=== PATIENT | female | born 1995 | race Caucasian/White ===

== ENCOUNTER 2018-04-18 05:48 | Inpatient (IN) ==
--- OUTSIDE RECORDS SUMMARY | 2018-04-18 05:54 | External Medical Summary | Continuity of Care Document ---
:1995 Author Organization [facility] Address [address] [place], [place] [id number] Phone Care Team Providers Name Role Phone Karina Vergara MD Unavailable Unavailable Allergies, Adverse Reactions, Alerts Substance Reaction Severity Status PENICILLIN Rash Unknown Active cefaclor Rash Unknown Active Cephalosporins Vomiting Unknown Active amoxicillin Rash Unknown Active CLINDAMYCIN HCL Vomiting Unknown Active Medications Medication Instructions Dosage Effective Status Comments Dates (start - stop) PrePlus 27 mg take 1 tablet by Not Available - Active or generic iron-1 mg tablet oral route every sub is fine day clindamycin HCl 300 take 1 capsule by 300 MG - Active mg capsule ORAL route 2 times every day for 7 days triamcinolone take 1 tablet by - Active acetonide 0.1 % ORAL route every topical cream 3 days as needed Problems Condition Effective Dates (start - stop) Clinical Status Previous Low Transverse - 20 weeks gestation of - Nicotine dependence, cigarettes, uncomplicated Abscess of vulva Supervision of other high risk - pregnancies, first trimester 13 weeks gestation of - Nicotine dependence, cigarettes, - uncomplicated Supervision of other high risk - pregnancies, first trimester Drug use complicating , first - trimester Pap Smear Screening, Vagina - 10 weeks gestation of - Abscess of vulva Supervision of other high risk - pregnancies, first trimester Previous Low Transverse - 13 weeks gestation of - Supervision of other high risk - pregnancies, second trimester 17 weeks gestation of - Supervision of other high risk - pregnancies, second trimester Previous Low Transverse - Encounter For Screening For - Malformations 20 weeks gestation of - Procedures Procedure Date OB Visit No Charge Results Test Name Date and Time Measure Units Reference Range Abnormal Flag Comments Unknown Advance Directives Directive Yes / No Effective Date File Name Unknown Encounters Encounter Practice Location Reason(s) Diagnoses Date Provider Care Team Description For Visit Members Karma Salazar Previous Low Mar-2 Cristi In Womens Transverse 9- [place]. 700 Count includes the [facility], [id number] weeks 8 Medical PO Box gestation of Center 1522, Yariel Mcnally, 120, [place], [place], [id number], [place], [place] [id number] tel:+ , [place]. tel: [phone] Karma Salazar Supervision of Mar-2 Cristi In Womens Ultrasound other high risk - [place]. 700 Count includes the [facility], pregnancies, 8 Medical PO Box second Center 1522, trimesterPrevious Yariel Mcnally, Low Transverse 120, [place], C-SectionEncounte [place], , r For [place], [place] Screening For [id number] tel:+ [id number] , [place]. weeks gestation tel: of [phone] Karma Salazar Supervision of Mar-0 Cristi In Womens other high risk - [place]. 700 Count includes the [facility], pregnancies, 8 Medical PO Box second Center 1522, [id number] weeks Yariel Mcnally, gestation of 120, [place], [place], [id number], [place], [place] [id number] tel:+ , [place]. tel:[phone] Karma Salazar Supervision of Feb-0 Cristi In Womens other high risk 8-201 [place]. 700 Health [place], pregnancies, 8 Medical PO Box first [email or web address] Center 1522, weeks gestation Yariel Mcnally, of 120, [place], [place], [id number], [place], [place] [id number] tel:+ , [place]. tel: [phone] Karma Salazar Supervision of Feb-0 Cristi In Womens Ultrasound other high risk - [place]. 700 Health [place], pregnancies, 8 Medical PO Box first Center 1522, trimesterPrevious Yariel Mcnally, Low Transverse 120, [place], C-[id number] weeks [place], , gestation of [place], [place] tel: , [place]. tel: [phone] Karma Salazar Nicotine Feb-0 Cristi Referring In Womens dependence, 1 [place]. [facility] Provider: Health [place], cigarettes, 8 Medical [place] PO Box uncomplicatedSupe Center Cristi R, 1522, rvision of other Yariel Mcnally, high risk 120, Medical [place], pregnancies, [place], [place] , first [place], [facility] 120, [place] trimesterDrug use [id number] [place], tel: complicating , [place]. [place] , first tel:[phone]. trimesterPap [id number] tel: Smear Screening, [phone] [id number] weeks gestation of Associates [place] Abscess of vulva Oct-0 Cristi In Womens 8- [place]. 700 Health [place], 5 Medical PO Box Center 1522, Yariel Mcnally, 120, [place], [place], , [place], [place] [id number] tel: , [place]. tel: [phone] Karma Salazar Nicotine Oct-0 Cristi In Womens dependence, 2- [place]. 700 Health [place], cigarettes, 5 Medical PO Box uncomplicatedAbsc Center 1522, ess of vulva Yariel Mcnally, 120, [place], [place], , [place], [place] [id number] tel: , [place]. tel: [phone] Family History Family Member Diagnosis Age At Onset Maternal Grandfather Kidney Disease Mother Hypertension Paternal Grandmother Hypertension Maternal Grandmother Hypertension Father Cardiovascular Disease Father MVA Immunizations Vaccine Date Status Comments Influenza, injectable, completed Source: New Immunization Record quadrivalent, preservative free, 3 yrs or older Influenza, injectable, completed Source: Other Provider quadrivalent, preservative free, 3 yrs or older Payers Payer name Insurance type Covered green party ID Authorization(s) [employer] [place] [employer] [place] [id number] [facility] - [id number] Medicaid [employer] [place] [employer] - Medicaid [place] [id number] Social History Type Description Quantity Date Captured Alcohol Use Details No Caffeine Use Details Unknown Tobacco Use Status Smoking Status Current every day smoker Vital Signs Date / Height Weight BMI Pulse Blood Temperature Respiratory Body Head BMI Time: Rate Pressure Rate Surface Circumference percentile Area 198.50 36.3 126/74 2018 lbs 0 mm[Hg] 11:45 kg/m AM eter (2) Chief Complaint And Reason For Visit Unknown Chief Complaint And Reason For Visit Reason For Referral Reason For Referral Unknown Plan Of Care Date Type Action Status Goal Tobacco cessation counseling completed Appointment Patsy Ivy BOOKED Appointment Patsy Ivy [facility] R C/S BOOKED Future Order: Radiology Order Nuchal Translucency ([id number]) Ordered Future Order: Radiology Order Complete OB Ultrasound > 14 Weeks Ordered ([id number]) Date Type Problem Goal Intervention Status Start Date Unknown. History Of Present Illness Encounter Date Complaint History Of Present Illness This patient has no known history of present illness Functional Status Encounter Date Functional Assessment Cognitive Assessment Unknown Medications Administered Medication Instructions Dosage Effective Dates (start - stop) Status Comments Drug Treatment Unknown Instructions Date Instruction Additional Information HIV and other routine tests risk factors identified by history anticipated course of care nutrition and weight gain counseling, special diet toxoplasmosis precautions (cats / raw meat) sexual activity exercise indications for ultrasound influenza vaccine environmental / work hazards travel tobacco (ask, advise, assess, assist and arrange) alcohol illicit / recreational drugs use of any medications (including supplements, vitamins, herbs, OTC drugs) smoking counseling domestic violence seat belt use childbirth classes / hospital facilities hospital registration genetic testing new ob handbook
--- OUTSIDE RECORDS SUMMARY | 2018-04-18 05:54 | External Medical Summary | Continuity of Care Document ---
:1995 Author Organization [facility] Address [address] [place], [place] [phone] Phone Care Team Providers Name Role Phone [...] oral route every sub is fine day triamcinolone take 1 tablet by - Active acetonide 0.1 % ORAL route every topical cream 3 days as needed clindamycin HCl 300 take 1 capsule by 300 MG - Active mg capsule ORAL route 2 times every day for 7 days Problems Condition Effective Dates (start - stop) Clinical Status Supervision of other high risk - pregnancies, second trimester Previous Low Transverse - Encounter For Screening For - Malformations 20 weeks gestation of - Nicotine dependence, cigarettes, uncomplicated Abscess of vulva Supervision of other high risk - pregnancies, first trimester 13 weeks gestation of - Previous Low Transverse - 20 weeks gestation [...] second trimester 17 weeks gestation of - Procedures Procedure Date Ultrasound exam of preg uterus, complete Results Test Name Date and Time Measure Units Reference Range Abnormal Flag Comments Unknown Advance Directives Directive Yes / No Effective Date File Name Unknown Encounters Encounter Practice Location Reason(s) Diagnoses Date Provider Care Team Description For Visit Members Karma Salazar Previous Low Mar-2 Cristi In Womens Transverse 9- [place]. [address] [place] [address], [id number] weeks 8 Medical PO Box gestation of Center 1522, Yariel Mcnally, 120, [place], [place], [id number], [place], [place] [id number] tel:+ , [place]. tel:[phone] Karma Salazar Supervision of Mar-2 Cristi In Womens Ultrasound other high risk - [place]. [address] [place] [address], pregnancies, 8 Medical PO Box second Center 1522, trimesterPrevious Yariel Mcnally, Low Transverse 120, [place], C-SectionEncounte [place], , r For [place], [place] Screening For [id number] tel: [id number] , [place]. weeks gestation tel: of [phone] Karma Salazar Supervision of Mar-0 Cristi In Womens other high risk - [place]. [address] [place] [address], pregnancies, 8 Medical PO Box second Center 1522, [id number] weeks Yariel Mcnally, gestation of 120, [place], [place], [id number], [place], [place] [id number] tel: , [place]. tel: [phone] Karma Salazar Supervision of Feb-0 Cristi In Womens other high risk 8-[address], pregnancies, 8 Medical PO Box first [id number] Center 1522, weeks gestation Yariel Mcnally, of 120, [place], [place], [id number], [place], [place] [id number] tel: , [place]. tel: [phone] Karma Salazar Supervision of Feb-0 Cristi In Womens Ultrasound other high risk - [place]. 700 Health [place], pregnancies, 8 Medical PO Box first Center 1522, trimesterPrevious Yariel Mcnally, Low Transverse 120, [place], [id number] weeks [place], , gestation of [place], [place] tel: , [place]. tel: [phone] Karma Salazar Nicotine Feb-0 Cristi Referring In Womens dependence, [place] [address] Provider: Health [place], cigarettes, 8 Medical [place] PO Box uncomplicatedSupe Center Cristi R, 1522, rvision of other Yariel Mcnally, high risk 120, Medical [place], pregnancies, [place], [place] , first MARYJANE [facility] 120, [place] trimesterDrug use [place], tel: complicating , [place]. [place] , first tel:[phone]. trimesterPap [id number] tel: Smear Screening, [id number] Ojpnyx47 weeks gestation of Associates [place] Abscess of vulva Oct-0 Cristi In Womens [place]. 700 Health [place], 5 Medical PO Box Center 1522, Yariel Mcnally, 120, [place], [place], , [place], [place] [id number] tel: , [place]. tel: [phone] Karma Salazar Nicotine Oct-0 Cristi In Womens dependence, 2 [place]. 700 Health [place], cigarettes, 5 Medical PO Box uncomplicatedAbsc Center 1522, ess of vulva Yariel Mcnally, 120, [place], [place], , [place], [place] [id number] tel: , [place]. tel: [phone] Family History Family Member Diagnosis Age At Onset Maternal Grandfather Kidney Disease Mother Hypertension Paternal Grandmother Hypertension Maternal Grandmother Hypertension Father Cardiovascular Disease Father MVA Immunizations Vaccine Date Status Comments Influenza, injectable, completed Source: New Immunization Record quadrivalent, preservative free, 3 yrs or older Influenza, injectable, completed Source: Other Provider quadrivalent, preservative free, 3 yrs or older Payers Payer name Insurance type Covered republican ID Authorization(s) [employer] - Medicaid [place] [id number] [facility] - [id number] Medicaid [employer] - [place] [id number] Social History Type Description Quantity Date Captured Unknown Vital Signs Date / Height Weight BMI Pulse Blood Temperature Respiratory Body Head BMI Time: Rate Pressure Rate Surface Circumference percentile Area Unknown Chief Complaint And Reason For Visit Unknown Chief Complaint And Reason For Visit Reason For Referral Reason For Referral Unknown Plan Of Care Date Type Action Status Goal Tobacco cessation counseling completed Appointment Patsy Ivy BOOKED Appointment Patsy Ivy [facility] R C/S BOOKED Future Order: Radiology Order Complete OB Ultrasound > 14 Weeks Ordered ([id number]) Future Order: Radiology Order Nuchal Translucency ([id number]) Ordered Date Type Problem Goal Intervention Status Start [...]
--- OUTSIDE RECORDS SUMMARY | 2018-04-18 05:54 | External Medical Summary | Continuity of Care Document ---
:1995 Author Organization [facility] Address [address] [place], [place] [id number] Phone Care Team Providers Name Role Phone Karina Vergara MD Unavailable Unavailable Allergies, Adverse Reactions, Alerts Substance Reaction Severity Status PENICILLIN Rash Unknown Active cefaclor Rash Unknown Active Cephalosporins Vomiting Unknown Active amoxicillin Rash Unknown Active CLINDAMYCIN HCL Vomiting Unknown Active Medications Medication Instructions Dosage Effective Dates Status Comments (start - stop) PrePlus 27 mg take 1 tablet by Not Available - Active or generic sub iron-1 mg tablet oral route every is fine day Problems Condition Effective Dates (start - stop) Clinical Status Supervision of other high risk - pregnancies, third trimester Previous Low Transverse - 35 weeks gestation of - Supervision of other high risk - pregnancies, first trimester 13 weeks gestation of - Nicotine dependence, cigarettes, - uncomplicated Supervision of other high risk - pregnancies, first trimester Drug use complicating , first - trimester Pap Smear Screening, Vagina - 10 weeks gestation of - Nicotine dependence, cigarettes, uncomplicated Abscess of vulva Abscess of vulva Supervision of other high risk - pregnancies, first trimester Previous Low Transverse - 13 weeks gestation of - Supervision of other high risk - pregnancies, second trimester 17 weeks gestation of - Supervision of other high risk - pregnancies, second trimester 23 weeks gestation of - Supervision of other high risk - pregnancies, second trimester Previous Low Transverse - Encounter For Screening For - Malformations 20 weeks gestation of - Supervision of other high risk - pregnancies, third trimester Previous Low Transverse - 30 weeks gestation of - Supervision of other high risk - pregnancies, third trimester 37 weeks gestation of - Supervision of other high risk - pregnancies, third trimester 34 weeks gestation of - Supervision of other high risk - pregnancies, third trimester 28 weeks gestation of - Supervision of other high risk - pregnancies, third trimester 32 weeks gestation of - Abnormal hematolog finding on - screening of mother Previous Low Transverse - 36 weeks gestation of - Previous Low Transverse - 38 weeks gestation of - Previous Low Transverse - Encounter For Screening For - Streptococcus B 36 weeks gestation of - Previous Low Transverse - 20 weeks gestation of - Procedures Procedure Date OB 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 700 Provider: [facility], C-[id number] weeks 8 Medical [place] PO Box gestation of [place], 1522, Yariel Mcnally 700 [place], 120, Medical [place], [facility] [id number], [place], [address], [id number] [place], tel:3 , [place]. [place], [id number]. [id number] tel: tel:+ [phone] Karma Salazar Supervision of Cristi Referring In Womens other high risk 6-201 [place]. 700 Provider: Health [place], pregnancies, 8 Medical [place] PO Box third [id number] Center [place], 1522, weeks gestation Yariel Mcnally, of 120, Medical [place] [address] [id number], [place], [address], [place] [id number] [place], tel:+ , [place]. [place], tel: tel:[phone] Karma Salazar Previous Low Jossue-1 Cristi Referring In Womens Transverse 9- [place]. 700 Provider: Health PA, C-SectionEncounte 8 Medical [place] PO Box r For Center Cristi R, 1522, Screening For Yariel Mcnally, Streptococcus B36 120, Medical [place], weeks gestation [address] [place] , of [place], Yariel 120, [place] [id number] [place], tel:+ , [place]. [place], tel: [phone]. [id number] tel:[phone] Karma Salazar Abnormal Jossue-1 Cristi Referring In Womens Ultrasound hematolog finding - [place]. 700 Provider: Health [place], on 8 Medical Tanner PO Box screening of [facility], 1522, motherPrevious Yariel Mcnally, Low Transverse 120, Medical [place], C-[id number] weeks [address] , gestation of [place], [address], [place] [id number] [place], tel:+ , [place]. [place], tel: tel:[phone] Salazar Supervision of Jossue-1 Cristi Referring In Womens other high risk 2-201 [place]. 700 Provider: Health [place], pregnancies, 8 Medical [place]anner PO Box third Center [place], 1522, trimesterPrevious Yariel Mcnally, Low Transverse 120, Medical [place], [id number] [id number], gestation of [place], [address], [place] [id number] [place], tel:+ , [place]. [place], tel: tel:[phone] Karma Salazar Supervision of Jossue-0 Cristi Referring In Womens other high risk 5-201 [place]. 700 Provider: Health [place], pregnancies, 8 Medical Tanner PO Box third [id number] Center [place], 1522, weeks gestation Yariel Mcnally, of 120, Medical [facility] [id number], [place], [address], [place] [id number] [place], tel:+ , [place], [address]. tel: tel:[phone] Karma Salazar Supervision of Josue-2 Cristi Referring In Womens other high risk 1-201 [place]. 700 Provider: Health PA, pregnancies, 8 Medical Tanner PO Box third [id number] Center [place], 1522, weeks gestation Yariel Mcnally, of 120, Medical [facility] [id number], [place], [address], [place] [id number] [place], tel:+ , [place]. [place], [address]. tel: tel:[phone] Karma Salazar Supervision of Josue-0 Cristi Referring In Womens other high risk 7-201 [place]. 700 Provider: Health PA, pregnancies, 8 Medical Tanner PO Box third Center [place], 1522, trimesterPrevious Yariel Mcnally, Low Transverse 120, Medical [place], C-Iqifnix27 weeks [place] [id number], gestation of [place], [address], [place] [id number] [place], tel:+ , [place], [address]. tel: tel:[phone] Karma Salazar Supervision of May-2 Cristi Referring In Womens other high risk 4-201 [place]. 700 Provider: Health PA, pregnancies, 8 Medical Tanner PO Box third [id number] Center [place], 1522, weeks gestation Yariel Mcnally, of 120, Medical [place] [facility] [id number], [place], [address], [place] [id number] [place], tel:+ , [place]. [place], tel: tel:[phone] Karma Salazar Supervision of Apr-2 Cristi Referring In Womens other high risk 5-201 [place]. 700 Provider: Health PA, pregnancies, 8 Medical Tanner PO Box second Center [place], 1522, weeks Yariel Mcnally, gestation of 120, Medical [place], [place], [place] [id number], [place], [address], [place] [id number] [place], tel: , [place], [address]. tel: tel:[phone] Karma Salazar Previous Low Mar-2 Cristi In Womens Transverse 9-201 [place]. 700 Health [place], C-[id number] weeks 8 Medical PO Box gestation of Center 1522, Yariel Mcnally, 120, [place], [place], [id number], [place], [place] [id number] tel: , [place]. tel: [phone] Karma Salazar Supervision of Mar-2 Cristi In Womens Ultrasound other high risk 9-201 [place]. 700 Health PA, pregnancies, 8 Medical PO Box second Center 1522, trimesterPrevious Yariel Mcnally, Low Transverse 120, [place], C-SectionEncounte [place], , r For [place], [place] Screening For [id number] tel: [id number] , [place]. weeks gestation tel:[phone] Karma Salazar Supervision of Mar-0 Cristi In Womens other high risk 8-201 [place]. 700 Health [place], pregnancies, 8 Medical PO Box second Center 1522, [id number] weeks Yariel Mcnally, gestation of 120, [place], [place], [id number], [place], [place] [id number] tel: , [place]. tel: [phone] Karma Salazar Supervision of Feb-0 Cristi In Womens other high risk 8-201 [place]. 700 Health PA, pregnancies, 8 Medical PO Box first [id number] Center 1522, weeks gestation Yariel Mcnally, of 120, [place], [place], [id number], [place], [place] [id number] tel: , [place]. tel: [phone] Karma Salazar Supervision of Feb-0 Cristi In Womens Ultrasound other high risk 8-201 [place]. 700 Health [place], pregnancies, 8 Medical PO Box first Center 1522, trimesterPrevious Yariel Mcnally, Low Transverse 120, [place], C-[id number] weeks [place], , gestation of [place], [place] tel: , [place]. tel: [phone] Karma Salazar Nicotine Feb-0 Cristi Referring In Womens dependence, 1- [place]. 700 Provider: Health [place], cigarettes, 8 Medical [place] PO Box uncomplicatedSupe Center Cristi Momin, 1522, rvision of other Yariel Mcnally, high risk 120, Medical [place], pregnancies, [facility] , first MARYJANE, [facility], [place] trimesterDrug use [id number] [place], tel: complicating , [place]. [place], , first tel: [phone]. trimesterPap [id number] tel: Smear Screening, [phone] Xfzeyx30 weeks gestation of [facility] [place] Abscess of vulva Oct-0 Cristi In Womens 8- [place]. 700 Health PA, 5 Medical PO Box Center 1522, Yariel Mcnally, [facility], [place], [place], , [place], [place] [id number] tel: , [place]. tel: [phone] Karma Salazar Nicotine Oct-0 Cristi In Womens dependence, 2- [place]. 700 Health PA, cigarettes, 5 Medical PO Box uncomplicatedAbsc Center 1522, ess of vulva Yariel Mcnally, 120, [place], [place], [id number], [place], [place] [id number] tel: , [place]. tel: [phone] Family History Family Member Diagnosis Age At Onset Maternal Grandfather Kidney Disease Mother Hypertension Paternal Grandmother Hypertension Maternal Grandmother Hypertension Father Cardiovascular Disease Father MVA Immunizations Vaccine Date Status Comments Tdap completed Source: New Immunization Record Influenza, injectable, completed Source: New Immunization Record quadrivalent, preservative free, 3 yrs or older Influenza, injectable, completed Source: Other Provider quadrivalent, preservative free, 3 yrs or older Payers Payer name Insurance type Covered republican ID Authorization(s) [employer] - Medicaid [place] [id number] [facility] [id number] Medicaid [employer] [place] [employer] - Medicaid [place] [id number] [employer] - Medicaid [place] [id number] Social History Type Description Quantity Date Captured Alcohol Use Details No Caffeine Use Details Unknown Tobacco Use Status Smoking Status Current every day smoker Vital Signs Date / Height Weight BMI Pulse Blood Temperature Respiratory Body Head BMI Time: Rate Pressure Rate Surface Circumference percentile Area 212.80 38.9 135/79 2018 lbs 2 mm[Hg] 1:17 kg/m PM eter (2) Chief Complaint And Reason For Visit Unknown Chief Complaint And Reason For Visit Reason For Referral Reason For Referral Unknown Plan Of Care Date Type Action Status Goal Tobacco cessation counseling completed Appointment Patsy Ivy C/S/GONZALES BOOKED Assist Future Order: Radiology Order Nuchal Translucency ([id number]) Ordered Future Order: Radiology Order Complete OB Ultrasound > 14 Weeks Ordered ([id number]) Future Order: Radiology Order Ultrasound OB Follow-up ([id number]) Ordered Date Type Problem Goal Intervention Status [...]
--- OUTSIDE RECORDS SUMMARY | 2018-04-18 05:54 | External Medical Summary | Continuity of Care Document ---
:1995 Author Organization [facility] Address [address] [place], [place] [id number] Phone Care Team Providers Name Role Phone [...] Previous Low Cristi Referring In Womens Transverse Mohinder. 700 Provider: Sierra TONG, C-SectionEncounte 8 Medical Mohinder PO Box r For Center Cristi R, 1522, Screening For Yariel Mcnally, Streptococcus B36 120, Medical [place], weeks gestation [address]han [address] [id number], of [place], Yariel 120, [place] [id number] Martin, tel: , [place]. [place]ANE, [id number] tel: [phone]. [id number] tel:[phone] Karma Salazar Abnormal Cristi Referring In Womens Ultrasound hematolog finding 9-201 Mohinder. 700 Provider: Sierra TONG, on 8 Medical Tanner PO Box screening of Center [place], 1522, motherPrevious Yariel Mcnally [place], Low Transverse 120, Medical [place], C-[id number] weeks [address] [id number], gestation of [place], [address], [place] [id number] [place], tel:+ , [place], [address]. tel: tel:[phone] Karma Salazar Supervision of Jossue-1 Cristi Referring In Womens other high risk 2-201 [place]. 700 Provider: Health [place], pregnancies, 8 Medical Tanner PO Box third Center [place], 1522, trimesterPrevious Yariel Mcnally, Low Transverse 120, Medical [place], C-[id number] weeks [place] [id number], gestation of [place], [address], [place] [id number] Salazar, tel:+ , [place]. [place], . tel: tel:[phone] Karma Salazar Supervision of Jossue-0 Cristi Referring In Womens other high risk 5-201 [place]. 700 Provider: Health [place], pregnancies, 8 Medical Tanner PO Box third [id number] Center [place], 1522, weeks gestation Yariel Mcnally, of 120, Medical Martin W[place] [id number], [place], [address], [place] [id number] [place], tel:+ , [place], [address]. tel: tel:[phone] Karma Salazar Supervision of Josue-2 Cristi Referring In Womens other high risk 1-201 [place]. 700 Provider: Health [place], pregnancies, 8 Medical Tanner PO Box third [email or web address] Center [place], 1522, weeks gestation Yariel Mcnally, of 120, Medical [facility] [id number], [place], [address], [place] [id number] [place], tel: , [place], [address]. tel: tel:[phone] Karma Salazar Supervision of Josue-0 Cristi Referring In Womens other high risk 7-201 [place]. 700 Provider: Health PA, pregnancies, 8 Medical Tanner PO Box third Center Di[place], 1522, trimesterPrevious Yariel Mcnally, Low Transverse 120, Medical [place], C-[id number] weeks [address] , gestation of [place], [address], [place] [id number] Salazar, tel: , [place]. [place], tel: tel: [phone] Karma Salazar Supervision of May-2 Cristi Referring In Womens other high risk 4-201 [place]. 700 Provider: Health [place], pregnancies, 8 Medical Tanner PO Box third [id number] Center [place], 1522, weeks gestation Yariel Mcnally, of 120, Medical [place], [facility] , [place], [address], [place] [id number] Martin, tel:+ , [place]. [place], tel: tel:+ [phone] Karma Salazar Supervision of Apr-2 Cristi Referring In Womens other high risk 5-201 [place]. 700 Provider: Health PA, pregnancies, 8 Medical Tanner PO Box second Center [place], 1522, [id number] weeks Yariel Mcnally, gestation of 120, Medical [place], [facility] [id number], [place], [address], [place] [id number] Martin, tel:+ , [place]. [place], tel: tel:+ [phone] Karma Salazar Previous Low Mar-2 Cristi In Womens Transverse 9-201 [place]. 700 Health PA, C-[id number] weeks 8 Medical PO Box gestation of Center 1522, Yariel Mcnally, 120, Martin WESLEY, [id number], [place], [place] [id number] tel: , [place]. tel: [phone] Karma Salazar Supervision of Mar-2 Cristi In Womens Ultrasound other high risk 9-201 [place]. 700 Health PA, pregnancies, 8 Medical PO Box second Center 1522, trimesterPrevious Yariel Mcnally, Low Transverse 120, [place], C-SectionEncounte [place], [id number], r For [place], [place] Screening For [id number] tel:+ [id number] , [place]. weeks gestation tel:[phone] Karma Salazar Supervision of Mar-0 Cristi In Womens other high risk 8-201 Mohinder. 700 Health PA, pregnancies, 8 Medical PO Box second Center 1522, [id number] weeks Yariel Mcnally, gestation of 120, [place], [place], , [place], [place] tel: , [place]. tel: [phone] Karma Salazar Supervision of Feb-0 Cristi In Womens other high risk 8- Mohinder. 700 Health PA, pregnancies, 8 Medical PO Box first Center 1522, weeks gestation Yariel Mcnally, of 120, [place], [place], [id number], [place], [place] [id number] tel: , [place]. tel: [phone] Karma Salazar Supervision of Feb-0 Cristi In Womens Ultrasound other high risk Mohinder. 700 Health PA, pregnancies, 8 Medical PO Box first Center 1522, trimesterPrevious Yariel Mcnally, Low Transverse 120, [place], C-Jzmugkq13 weeks [place], , gestation of [place], [place] tel: , [place]. tel: [phone] Karma Salazar Nicotine Feb-0 Cristi Referring In Womens dependence, Mohinder. 700 Provider: Health PA, cigarettes, 8 Medical [place] PO Box uncomplicatedSupe Center Cristi R, 1522, rvision of other Yariel Mcnally, high risk 120, Medical [place], pregnancies, Sal[place], Center , first [place], [facility] 120, [place] trimesterDrug use [id number] Martin, tel: complicating , [place]. [place] , first tel:[phone]. trimesterPap [id number] tel: Smear Screening, [phone] Jvewwu28 weeks gestation of Associates Martin Abscess of vulva Oct-0 Cristi In Womens 8-201 Mohinder. 700 Health PA, 5 Medical PO Box Center 1522, Yariel Mcnally, 120, [place], [place], [id number], [place], [place] [id number] tel: , [place]. tel: [phone] Karma Salazar Nicotine Oct-0 Cristi In Womens dependence, 2-201 Mohinder. 700 Health PA, cigarettes, 5 Medical PO Box [facility] Center 1522, ess of vulva Yariel Mcnally, [facility], [place], [place], [id number], [place], [place] [id number] tel:[phone] , [place]. [address] tel: [phone] Family History Family Member Diagnosis Age At [...] older Payers Payer name Insurance type Covered constitution party ID Authorization(s) [employer] [place] [employer] [place] [id number] [facility] [id number] Medicaid [employer] [place] [employer] - Medicaid [place] [id number] [employer] [place] [employer] [place] [id number] Social History Type Description Quantity Date Captured Alcohol Use Details No Caffeine Use Details Unknown Tobacco Use Status Smoking Status Current every day smoker Vital Signs Date / Height Weight BMI Pulse Blood Temperature Respiratory Body Head BMI Time: Rate Pressure Rate Surface Circumference percentile Area 213.10 38.9 131/2018 lbs 7 mm[Hg] 11:16 kg/m AM eter (2) Chief Complaint And Reason For Visit Unknown Chief Complaint And Reason For Visit Reason For Referral Reason For Referral Unknown Plan Of Care Date Type Action Status Goal Tobacco cessation counseling completed Appointment Patsy Ivy BOOKED Appointment Patsy Ivy [facility] R C/S/MB BOOKED Assist Future Order: Radiology Order Nuchal Translucency ([id number]) Ordered Future Order: Radiology Order Complete OB Ultrasound > 14 Weeks Ordered ([id number]) Future Order: Radiology Order Ultrasound OB Follow-up ([id number]) Ordered Date Type Problem Goal Intervention Status [...]
--- OUTSIDE RECORDS SUMMARY | 2018-04-18 05:54 | External Medical Summary | Continuity of Care Document ---
:1995 Author Organization [facility] Address [address] [place], [place] [phone] Phone Care Team Providers Name Role Phone [...] third trimester 32 weeks gestation of - Supervision of other [...] third trimester 28 weeks gestation of - Previous Low Transverse - 20 weeks gestation of - Procedures Procedure Date OB Visit No Charge Results Test Name Date and Time Measure Units Reference Range Abnormal Flag Comments Unknown Advance Directives Directive Yes / No Effective Date File Name Unknown Encounters Encounter Practice Location Reason(s) Diagnoses Date Provider Care Team Description For Visit Members Karma Salazar Supervision of Jossue-0 Cristi Referring In Womens other high risk 5-201 [place]. 700 Provider: Health [place], pregnancies, 8 Medical Tanner PO Box third [id number] Center [place], 1522, weeks gestation Yariel Mcnally, of 120, Medical [facility] [id number], [place], [address], [id number] Martin, tel:+ , [facility], [address]. [id number] tel: tel:[phone] Karma Salazar Supervision of Josue-2 Cristi Referring In Womens other high risk 1-201 [place]. 700 Provider: Health PA, pregnancies, 8 Medical Tanner PO Box third [email or web address] Center [place], 1522, weeks gestation Yariel Mcnally, of 120, Medical [facility] [id number], [place], [address], [id number] Martin, tel: , [facility], [address]. [id number] tel: tel:[phone] Karma Salazar Supervision of Josue-0 Cristi Referring In Womens other high risk 7-201 Mohinder. 700 Provider: Health PA, pregnancies, 8 Medical Tanner PO Box third Center [place], 1522, trimesterPrevious Yariel Mcnally, Low Transverse 120, Medical [place], C-[id number] weeks [facility] Dr [id number], gestation of [place], [address], [place] [id number] Salazar, tel: , [place]. [place], tel: tel: [phone] Karma Salazar Supervision of May-2 Cristi Referring In Womens other high risk 4-201 [place]. 700 Provider: Health PA, pregnancies, 8 Medical Tanner PO Box third [id number] Center [place], 1522, weeks gestation Yariel Mcnally, of 120, Medical [place], [place], [place] [id number], [place], [address], [place] [id number] Salazar, tel:+ , [place]. [place], tel: tel: [phone] Karma Salazar Supervision of Apr-2 Cristi Referring In Womens other high risk 5-201 [place]. 700 Provider: Health PA, pregnancies, 8 Medical Tanner PO Box second Center [place], 1522, [id number] weeks Yariel Mcnallychita, gestation of 120, Medical [place], [facility] [id number], [place], [address], [place] [id number] [place], tel: , [place]. [place], tel: tel: [phone] Karma Salazar Previous Low Mar-2 Cristi In Womens Transverse 9-201 [place]. 700 Health PA, C-[id number] weeks 8 Medical PO Box gestation of Center 1522, Yariel Mcnally, 120, Martin [place], [id number], [place], [place] [id number] tel: , [place]. tel: [phone] Karma Salazar Supervision of Mar-2 Cristi In Womens Ultrasound other high risk 9-201 [place]. 700 Health PA, pregnancies, 8 Medical PO Box second Center 1522, trimesterPrevious Yariel Mcnally, Low Transverse 120, [place], C-SectionEncounte [place], [id number], r For [place], [place] Screening For [id number] tel:+ [id number] , [place]. weeks gestation tel:[phone] aKrma Salazar Supervision of Mar-0 Cristi In Womens other high risk 8-201 Mohinder. 700 Health PA, pregnancies, 8 Medical PO Box second Center 1522, [id number] weeks Yariel Mcnally, gestation of 120, [place], [place], , [place], [place] tel: , [place]. tel: [phone] Karma Salazar Supervision of Feb-0 Cristi In Womens other high risk 8-201 Mohinder. 700 Health PA, pregnancies, 8 Medical PO Box first [id number] Center 1522, weeks gestation Yariel Mcnally, of 120, [place], [place], [id number], [place], [place] [id number] tel: , [place]. tel: [phone] Karma Salazar Supervision of Feb-0 Cristi In Womens Ultrasound other high risk 8- Mohinder. 700 Health PA, pregnancies, 8 Medical PO Box first Center 1522, trimesterPrevious Yariel Mcnally, Low Transverse 120, [place], C-Ayomqjw54 weeks [place], , gestation of [place], [place] [id number] tel: , [place]. tel: [phone] Karma Salazar Nicotine Feb-0 Cristi Referring In Womens dependence, 1- [place]. 700 Provider: Health RAN, cigarettes, 8 Medical [place] PO Box uncomplicatedSupe Center Cristi R, 1522, rvision of other Yariel Mcnally, high risk 120, Medical [place], pregnancies, [place], Center , first [place], [facility] , [place] trimesterDrug use Martin, tel: complicating , [place]. [place] , first tel:[phone]. trimesterPap [id number] tel: Smear Screening, [phone] [id number] weeks gestation of Associates [place] Abscess of vulva Oct-0 Cristi In Womens 8-201 Mohinder. 700 Health PA, 5 Medical PO Box Center 1522, Yariel Mcnally, 120, [place], [place], [id number], [place], [place] [id number] tel: , [place]. tel: [phone] Karma Salazar Nicotine Oct-0 Cristi In Womens dependence, 2-[address] [place], cigarettes, 5 Medical PO Box [facility] Center 1522, ess of vulva Yariel Mcnally, 120, [place], [place], [id number], [place], [place] [id number] tel:[phone] , [place]. [address]66318 tel: [phone] Family History Family Member Diagnosis Age At [...] Authorization(s) [employer] [place] [employer] - Medicaid [place] [id number] [facility] - [id number] Medicaid [employer] [place] [employer] - Medicaid [place] [id number] Social History Type Description Quantity Date Captured Alcohol Use Details No Caffeine Use Details Unknown Tobacco Use Status Smoking Status Current every day smoker Vital Signs Date / Height Weight BMI Pulse Blood Temperature Respiratory Body Head BMI Time: Rate Pressure Rate Surface Circumference percentile Area 207.10 37.8 136/80 -2018 lbs 8 mm[Hg] 11:14 kg/m AM eter (2) Chief Complaint And Reason For Visit Unknown Chief Complaint And Reason For Visit Reason For Referral Reason For Referral Unknown Plan Of Care Date Type Action Status Goal Tobacco cessation counseling completed Appointment Patsy Ivy BOOKED Appointment Patsy Ivy BOOKED Appointment Patsy Ivy BOOKED Appointment Patsy Ivy [facility] R C/S BOOKED Future Order: Radiology Order Nuchal Translucency ([id number]) Ordered Future Order: Radiology Order Complete OB Ultrasound > 14 Weeks Ordered ([id number]) Date Type Problem Goal Intervention Status Start [...]
--- OUTSIDE RECORDS SUMMARY | 2018-04-18 05:54 | External Medical Summary | Continuity of Care Document ---
:1995 Author Organization [facility] Address [address] [place], [place] [phone] Phone Care Team Providers Name Role Phone [...] - Malformations 20 weeks gestation of - Previous Low Transverse - 20 weeks gestation of - Procedures Procedure Date OB Visit No Charge Results Test Name Date and Time Measure Units Reference Range Abnormal Flag Comments Unknown Advance Directives Directive Yes / No Effective Date File Name Unknown Encounters Encounter Practice Location Reason(s) Diagnoses Date Provider Care Team Description For Visit Members Karma Salazar Supervision of Apr-2 Cristi Referring In Womens other high risk [place]. 700 Provider: Health [place], pregnancies, 8 Medical Tanner PO Box second Center [place], 1522, [id number] weeks Yariel Mcnally, gestation of 120, Medical [place], [facility] [id number], [place], [address], [place] [id number] [place], tel:+ , [place], [address]. tel: tel: [phone] Karma Salazar Previous Low Mar-2 Cristi In Womens Transverse - [place]. 700 [facility], C-[id number] weeks 8 Medical PO Box gestation of Center 1522, Yariel Mcnally, 120, [place], [place], [id number], [place], [place] [id number] tel: , [place]. tel: [phone] Karma Salazar Supervision of Mar-2 Cristi In Womens Ultrasound other high risk - [place]. 700 Health [place], pregnancies, 8 Medical PO Box second Center 1522, trimesterPrevious Yariel Mcnally, Low Transverse 120, [place], C-SectionEncounte [place], , r For [place], [place] Screening For [id number] tel: [id number] , [place]. weeks gestation tel: of [phone] Karma Salazar Supervision of Mar-0 Cristi In Womens other high risk - [place]. 700 Health [place], pregnancies, 8 Medical PO Box second Center 1522, [id number] weeks Yariel Mcnally, gestation of 120, [place], [place], [id number], [place], [place] [id number] tel: , [place]. tel: [phone] Karma Salazar Supervision of Feb-0 Cristi In Womens other high risk 8-201 Mohinder. 700 Health PA, pregnancies, 8 Medical PO Box first [email or web address] Center 1522, weeks gestation Yariel Mcnally, of 120, [place], [place], , [place], [place] [id number] tel: , [place]. tel: [phone] Karma Salazar Supervision of Feb-0 Cristi In Womens Ultrasound other high risk 8- Mohinder. 700 Health PA, pregnancies, 8 Medical PO Box first Center 1522, trimesterPrevious Yariel Mcnally, Low Transverse 120, [place], C-Puyftpn85 weeks [place], , gestation of [place], [place] tel: , [place]. tel: [phone] Associates [place] Nicotine Feb-0 Cristi Referring In Womens dependence, - [place]onda. 700 Provider: Health PA, cigarettes, 8 Medical Mohinder PO Box uncomplicatedSupe Center Cristi R, 1522, rvision of other Yariel Mcnally, high risk 120, Medical [place], pregnancies, [place], [place] , first MARYJANE [facility] , [place] trimesterDrug use [place], tel: complicating , [place]. [place] , first tel:[phone]. trimesterPap [id number] tel: Smear Screening, [id number] Biinuu10 weeks gestation of Associates [place] Abscess of vulva Oct-0 Cristi In Womens 8-201 Mohinder. 700 Health PA, 5 Medical PO Box Center 1522, Yariel Mcnally, 120, [place], [place], , [place], [place] [id number] tel: , [place]. tel: [phone] Karma Salazar Nicotine Oct-0 Cristi In Womens dependence, 2-201 [place]. 700 Health PA, cigarettes, 5 Medical PO Box uncomplicatedAbsc Center 1522, ess of vulva Yariel Mcnally, 120, [place], [place], , [place], [place] [id number] tel: , [place]. tel: [phone] Family History Family Member Diagnosis Age At Onset Maternal Grandfather Kidney Disease Mother Hypertension Paternal Grandmother Hypertension Maternal Grandmother Hypertension Father Cardiovascular Disease Father MVA Immunizations Vaccine Date Status Comments Influenza, injectable, completed Source: New Immunization Record quadrivalent, preservative free, 3 yrs or older Influenza, injectable, completed Source: Other Provider quadrivalent, preservative free, 3 yrs or older Payers Payer name Insurance type Covered libertarian ID Authorization(s) [employer] [place] [employer] - Medicaid [place] [id number] [facility] [id number] Medicaid [employer] [place] [employer] - Medicaid [place] [id number] Social History Type Description Quantity Date Captured Alcohol Use Details No Caffeine Use Details Unknown Tobacco Use Status Smoking Status Current every day smoker Vital Signs Date / Height Weight BMI Pulse Blood Temperature Respiratory Body Head BMI Time: Rate Pressure Rate Surface Circumference percentile Area 204.50 37.4 138/79 2018 lbs 0 mm[Hg] 2:34 kg/m PM eter (2) Chief Complaint And Reason For Visit Unknown Chief Complaint And Reason For Visit Reason For Referral Reason For Referral Unknown Plan Of Care Date Type Action Status Goal Tobacco cessation counseling completed Appointment Patsy Ivy [facility] BOOKED Appointment Patsy Ivy [facility] R C/S BOOKED Future Order: Radiology Order Nuchal Translucency ([id number]) Ordered Future Order: Radiology Order Complete OB Ultrasound > 14 Weeks Ordered ([id number]) Date Type Problem Goal Intervention Status Start [...]
--- OUTSIDE RECORDS SUMMARY | 2018-04-18 05:55 | External Medical Summary | Continuity of Care Document ---
:1995 Author Organization [facility] Address [address] [place], [place] [phone] Phone Care Team Providers Name Role Phone [...] second trimester 17 weeks gestation of - Nicotine dependence, cigarettes, [...] Transverse - 13 weeks gestation of - Procedures Procedure Date OB Visit No Charge Results Test Name Date and Time Measure Units Reference Range Abnormal Flag Comments Unknown Advance Directives Directive Yes / No Effective Date File Name Unknown Encounters Encounter Practice Location Reason(s) Diagnoses Date Provider Care Team Description For Visit Members Karma Salazar Supervision of Mar-0 Cristi In Womens other high risk - [place]. 700 Health [place], pregnancies, 8 Medical PO Box second Center 1522, [id number] weeks Yariel Mcnally, gestation of 120, [place], [place], [id number], [place], [place] [id number] tel: , [place]. tel: [phone] Karma Salazar Supervision of Feb-0 Cristi In Womens other high risk - [place]. 700 Health PA, pregnancies, 8 Medical PO Box first [id number] Center 1522, weeks gestation Yariel Mcnally, of 120, [place], [place], [id number], [place], [place] [id number] tel: , [place]. tel: [phone] Karma Salazar Supervision of Feb-0 Cristi In Womens Ultrasound other high risk [place]. 700 Health PA, pregnancies, 8 Medical PO Box first Center 1522, trimesterPrevious Yariel Mcnally, Low Transverse 120, [place], C-Khvhdxf70 weeks [place], , gestation of [place], [place] tel: , . tel: [phone] Karma Salazar Nicotine Feb-0 Cristi Referring In Womens dependence, [place]. 700 Provider: Health RAN, cigarettes, 8 Medical Mohinder PO Box uncomplicatedSupe Center Cristi R, 1522, rvision of other Yariel Mcnally, high risk 120, Medical [place], pregnancies, [place], [place] , first MARYJANE [facility] 120, [place] trimesterDrug use [place], tel: complicating , [place]. [place] , first tel:[phone]. trimesterPap [id number] tel: Smear Screening, [id number] Erdvqj41 weeks gestation of Karma Salazar Abscess of vulva Oct-0 Cristi In Womens [place]. 700 Health PA, 5 Medical PO Box Center 1522, Yariel Mcnally, 120, [place], [place], [id number], [place], [place] [id number] tel: , [place]. tel: [phone] Associates [place] Nicotine Jun- Cristi In Womens dependence, 2-[address], cigarettes, 5 Medical PO Box [facility] Center 1522, ess of vulva , Yariel [place], 120, [place], [place], [id number], [place], [place] [id number] tel: , . [id number] tel: [phone] Family History Family Member Diagnosis Age At [...] Authorization(s) [employer] - Medicaid [place] [id number] [facility] [id number] Medicaid [employer] - Medicaid [place] [id number] Social History Type Description Quantity Date Captured Alcohol Use Details No Caffeine Use Details Unknown Tobacco Use Status Smoking Status Current every day smoker Vital Signs Date / Height Weight BMI Pulse Blood Temperature Respiratory Body Head BMI Time: Rate Pressure Rate Surface Circumference percentile Area 191.00 34.9 116/63 2018 lbs 3 mm[Hg] 10:09 kg/m AM eter (2) Chief Complaint And Reason For Visit Unknown Chief Complaint And Reason For Visit Reason For Referral Reason For Referral Unknown Plan Of Care Date Type Action Status Goal Tobacco cessation counseling completed Appointment Patsy Ivy BOOKED Appointment Patsy Ivy BOOKED Future Order: Radiology Order Nuchal Translucency ([id number]) Ordered Date Type Problem Goal Intervention Status [...]
--- OUTSIDE RECORDS SUMMARY | 2018-04-18 05:55 | External Medical Summary | Continuity of Care Document ---
:1995 Author Organization [facility] Address [address] [place], [place] [id number] Phone Care Team Providers Name Role Phone [...] weeks gestation of - Procedures Procedure Date Unknown Results Test Name Date and Time Measure Units Reference Range Abnormal Flag Comments Unknown Advance Directives Directive Yes / No Effective Date File Name Unknown Encounters Encounter Practice Location Reason(s) Diagnoses Date Provider Care Team Description For Visit Members Karma Salazar Supervision of Josue-0 Cristi Referring In Womens other high risk 7-201 Moh[place]. 700 Provider: Health RAN, pregnancies, 8 Medical Tanner PO Box third Center Dias, 1522, trimesterPrevious Yariel Mcnally, Low Transverse 120, Medical [place], [id number] weeks [address] [id number], gestation of [place], [address], [place] [id number] [place], tel:+[phone] , [place], [address] tel: tel:[phone] Karma Salazar May-3 Cristi In Womens 0-201 Mohinder. 700 Health PA, 8 Medical PO Box Center [address], Yariel Mcnally, 120, [place], [place], [id number], [place] [id number] tel:+ , [place]. tel: [phone] Karma Salazar Supervision of May-2 Cristi Referring In Womens other high risk 4-201 Mohinder. 700 Provider: Health RAN, pregnancies, 8 Medical Tanner PO Box third [email or web address] Center Dias, 1522, weeks gestation Yariel Mcnally, of 120, Medical MARYJANE, [place] , [place], [address], [place] [id number] [place], tel:+[phone] , [place], [address]. tel: tel:[phone] Karma Salazar Supervision of Apr-2 Cristi Referring In Womens other high risk 5-201 Mohinder. 700 Provider: Health RAN, pregnancies, 8 Medical Tanner PO Box second Center Dias, 1522, weeks Yariel Mcnally, gestation of 120, Medical [place], [facility] [id number], [place], [address], [place] [id number] Salazar, tel: , [place], [address]. tel: tel:[phone] Karma Salazar Previous Low Mar-2 Cristi In Womens Transverse 9-201 Mohinder. 700 Health [place], [id number] weeks 8 Medical PO Box gestation of Center 1522, Yariel Mcnally, 120, [place], [place], [id number], [place] [id number] tel: , [place]. tel: [phone] Karma Salazar Supervision of Mar-2 Cristi In Womens Ultrasound other high risk 9-201 [place]. 700 Health [place], pregnancies, 8 Medical PO Box second Center 1522, trimesterPrevious Yariel Mcnally, Low Transverse 120, [place], C-SectionEncounte [place], , r For [place], [place] Screening For [id number] tel: [id number] , [place]. weeks gestation tel:[phone] Karma Salazar Supervision of Mar-0 Cristi In Womens other high risk 8-201 [place]. 700 Health PA, pregnancies, 8 Medical PO Box second Center 1522, [id number] weeks Yariel Mcnally, gestation of 120, [place], [place], [id number], [place], [place] [id number] tel: , [place]. tel: [phone] Karma Salazar Supervision of Feb-0 Cristi In Womens other high risk 8-201 [place]. 700 Health PA, pregnancies, 8 Medical PO Box first [email or web address] Center 1522, weeks gestation Yariel Mcnally, of 120, [place], [place], [id number], [place] [id number] tel: , [place]. tel: [phone] Karma Salazar Supervision of Feb-0 Cristi In Womens Ultrasound other high risk 8-201 [place]. 700 Health [place], pregnancies, 8 Medical PO Box first Center 1522, trimesterPrevious Yariel Mcnally, Low Transverse 120, [place], [id number] weeks [place], , gestation of [place], [place] tel: , [place]. tel: [phone] [facility] [place] Nicotine Feb-0 Cristi Referring In Womens dependence, 1- [place]. 700 Provider: Health [place], cigarettes, 8 Medical [place] PO Box uncomplicatedSupe Center Cristi Momin, 1522, rvision of other Yariel Mcnally, high risk 120, Medical [place], pregnancies, [facility] , first MARYJANE, [facility] 120, [place] trimesterDrug use [place], tel: complicating , [place]. [place], , first tel:[phone]. trimesterPap [id number] tel: Smear Screening, [phone] Nbedai22 weeks gestation of [facility] [place] Abscess of vulva Oct-0 Cristi In Womens 8- [place]. 700 Health PA, 5 Medical PO Box Center 1522, Yariel Mcnally, [facility], [place], [place], , [place], [place] [id number] tel: , [place]. tel: [phone] Karma Salazar Nicotine Oct-0 Cristi In Womens dependence, 2- [place]. 700 Health PA, cigarettes, 5 Medical PO Box uncomplicatedAbsc Center 1522, ess of vulva Yariel Mcnally, [facility], [place], [place], , [place] [id number] tel: , [place]. tel: [phone] Family History Family Member Diagnosis Age At Onset Maternal Grandfather Kidney Disease Mother Hypertension Paternal Grandmother Hypertension Maternal Grandmother Hypertension Father Cardiovascular Disease Father MVA Immunizations Vaccine Date Status Comments Influenza, injectable, completed Source: New Immunization Record quadrivalent, preservative free, 3 yrs or older Influenza, injectable, completed Source: Other Provider quadrivalent, preservative free, 3 yrs or older Payers Payer name Insurance type Covered democrat ID Authorization(s) [employer] [place] [employer] [place] Medicaid [place] [id number] [facility] - [id number] Medicaid [employer] - Medicaid [place] [id number] Social History Type Description Quantity Date Captured [...] Appointment Patsy Ivy BOOKED Appointment Patsy Ivy [facility] [place] C/S BOOKED Future Order: Radiology Order Nuchal Translucency ([id number]) Ordered Future Order: Radiology Order Complete OB Ultrasound > 14 Weeks Ordered ([id number]) Date Type Problem Goal Intervention Status Start [...]
--- OUTSIDE RECORDS SUMMARY | 2018-04-18 05:55 | External Medical Summary | Continuity of Care Document ---
:1995 Author Organization [facility] Address [address] [place], [place] [id number] Phone Care Team Providers Name Role Phone [...] third trimester 32 weeks gestation of - Previous Low Transverse - 20 weeks gestation of - Procedures Procedure Date OB Visit No Charge Results Test Name Date and Time Measure Units Reference Range Abnormal Flag Comments Unknown Advance Directives Directive Yes / No Effective Date File Name Unknown Encounters Encounter Practice Location Reason(s) Diagnoses Date Provider Care Team Description For Visit Members Karma Salazar Supervision of Feb-2 Cristi Referring In Womens other high risk 1-201 [place]. 700 Provider: Health [place], pregnancies, 8 Medical Tanner PO Box third [email or web address] Center Dias, 1522, weeks gestation Yariel Mcnally, of 120, Medical [place] [address] [id number], [place], [address], [id number] [place], tel:+ , [place], [address]. [id number] tel: tel:[phone] Karma Salazar Supervision of Josue-0 Cristi Referring In Womens other high risk 7-201 [place]. 700 Provider: Health [place], pregnancies, 8 Medical Tanner PO Box third Center Dias, 1522, trimesterPrevious Yariel Mcnally, Low Transverse 120, Medical MARYJANE, [id number] [address] [id number], gestation of [place], [address], [id number] [place], tel: , [place], [address]. [id number] tel: tel:[phone] Karma Salazar Supervision of January-2 Cristi Referring In Womens other high risk 4-201 [place]. 700 Provider: Health PA, pregnancies, 8 Medical Tanner PO Box third [email or web address] Center Dias, 1522, weeks gestation Yariel Mcnally, of 120, Medical [place] [address] [id number], [place], [address], [id number] [place], tel:+[phone] , [place], [address]. tel: tel: [phone] Karma Salazar Supervision of Apr-2 Cristi Referring In Womens other high risk 5-201 [place]. 700 Provider: Health [place], pregnancies, 8 Medical Tanner PO Box second Center Dias, 1522, [email or web address] weeks Yariel Mcnally, gestation of 120, Medical [place], [place], Center , [place], [address], [place] [id number] [place], tel: , [place]. [place], . tel: tel: [phone] Karma Salazar Previous Low Mar-2 Cristi In Womens Transverse 9-201 [place]. 700 Health PA, [id number] weeks 8 Medical PO Box gestation of Center 1522, Yariel Mcnally, 120, [place], [place], , [place], [place] [id number] tel: , [place]. tel: [phone] Karma Salazar Supervision of Mar-2 Cristi In Womens Ultrasound other high risk 9-201 [place]. 700 Health PA, pregnancies, 8 Medical PO Box second Center 1522, trimesterPrevious Yariel Mcnally, Low Transverse 120, [place], C-SectionEncounte [place], , r For [place], [place] Screening [place] [id number] tel: [id number] , [place]. weeks gestation tel: of [phone] Karma Salazar Supervision of Mar-0 Cristi In Womens other high risk 8-201 [place]. 700 Health PA, pregnancies, 8 Medical PO Box second Center 1522, [id number] weeks Yariel Mcnally, gestation of 120, [place], [place], [id number], [place], [place] [id number] tel: , [place]. tel: [phone] Karma Salazar Supervision of Feb-0 Cristi In Womens other high risk 8-201 [place]. 700 Health PA, pregnancies, 8 Medical PO Box first [email or web address] Center 1522, weeks gestation Yariel Mcnally, of 120, [place], [place], [id number], [place] [id number] tel: , [place]. tel: [phone] Karma Salazar Supervision of Feb-0 Cristi In Womens Ultrasound other high risk [place]. 700 Health PA, pregnancies, 8 Medical PO Box first Center 1522, trimesterPrevious Yariel Mcnally, Low Transverse 120, [place], [id number] weeks [place], , gestation of [place], [place] [id number] tel: , [place]. tel: [phone] Karma Salazar Nicotine Feb-0 Cristi Referring In Womens dependence, - [place]. 700 Provider: Health PA, cigarettes, 8 [facility]plicated[facility] Center Cristi Momin, 1522, rvision of other Yariel Mcnally, high risk 120, Medical [place], pregnancies, [place], [place] , first [place], [place] [address], trimesterDrug use [id number] [place], tel: complicating , [place]. [place] , first tel: [phone]. trimesterPap [id number] tel: Smear Screening, [id number] weeks gestation of Associates [place] Abscess of vulva Oct-0 Cristi In Womens [place]. 700 Health PA, 5 Medical PO Box Center [address], Yariel Mcnally, 120, [place], [place], [id number], [place], [place] [id number] tel: , [place]. tel: [phone] Karma Salazar Nicotine Oct-0 Cristi In Womens dependence, 2- [place]. 700 Health PA, cigarettes, 5 Medical PO Box uncomplicatedAbsc Center 1522, ess of vulva Yariel Mcnally, 120, [place], [place], [id number], [place], [place] [id number] tel: , [place]. tel: [phone] Family History Family Member Diagnosis Age At [...] Authorization(s) [employer] - Medicaid [place] [id number] [facility] - [id number] Medicaid [employer] - Medicaid [place] [id number] Social History Type Description Quantity Date Captured Alcohol Use Details No Caffeine Use Details Unknown Tobacco Use Status Smoking Status Current every day smoker Vital Signs Date / Height Weight BMI Pulse Blood Temperature Respiratory Body Head BMI Time: Rate Pressure Rate Surface Circumference percentile Area 206.70 37.8 lbs 0 mm[Hg] 11:25 kg/m AM eter (2) Chief Complaint And Reason For Visit Unknown Chief Complaint And Reason For Visit Reason For Referral Reason For Referral Unknown Plan Of Care Date Type Action Status Goal Tobacco cessation counseling completed Appointment Patsy Ivy BOOKED Appointment Patsy Ivy BOOKED Appointment Patsy Ivy BOOKED Appointment Patsy Ivy [facility] [place] C/S BOOKED Future Order: Radiology Order Nuchal Translucency ([id number]) Ordered Future Order: Radiology Order Complete OB Ultrasound > 14 Weeks Ordered ([id number]) Date Type Problem Goal Intervention Status Start [...]
[2018-04-18] MEDS ORDERED: FAMOTIDINE PB 20 MG/50 ML BAG IV ONE (06:01)
[2018-04-18] MEDS ORDERED: CITRIC ACID/SODIUM CITRATE 30ml PO ONE (06:01)
[2018-04-18 06:47] VITALS: BMI 40.4
[2018-04-18] MEDS: LR 1,000 ML IV SCH ×7 (06:49→20:25)
[2018-04-18] MEDS ORDERED: CLINDAMYCIN PB 900 MG/50 ML BAG IV SCH (07:00)
[2018-04-18] MEDS ORDERED: NOZIN NASAL SWAB NAS ONE (07:23)
[2018-04-18] MEDS ORDERED: FentaNYL 100 MCG/2 ML INJECTION ONE (07:44)
[2018-04-18] MEDS ORDERED: MORPHINE SULFATE PF 5mg/10ml INJ (Duramorph) ONE (07:44)
[2018-04-18] MEDS ORDERED: EPHEDRINE 50mg/ml INJECTION ONE (07:47)
[2018-04-18] MEDS ORDERED: BUPIVACAINE 0.75%/DEXTROSE 8.5% SPINAL 2 ML AMPULE IJ ONE (07:53)
[2018-04-18] MEDS ORDERED: LIDOCAINE 2% JELLY Tube 30ml ONE (07:53)
[2018-04-18] MEDS ORDERED: OXYTOCIN BOLUS BAG 30 UNIT/500 ML ML IV SCH (08:30)
[2018-04-18] MEDS ORDERED: ONDANSETRON 4 MG/2 ML INJECTION ONE (08:36)
[2018-04-18] MEDS ORDERED: HYDROCORTISONE 2.5% CREAM 30gm RECTALLY PRN (09:04)
[2018-04-18] MEDS ORDERED: SIMETHICONE 80 MG CHEWABLE TABLET PO PRN (09:04)
[2018-04-18] MEDS ORDERED: CALCIUM CARBONATE Chewable 500mg TABLET PO PRN (09:04)
[2018-04-18] MEDS ORDERED: DiphenhydrAMINE 25 MG CAPSULE PO PRN (09:04)
[2018-04-18] MEDS ORDERED: ACETAMINOPHEN 500 MG TABLET PO PRN (09:04)
--- NOTE | 2018-04-18 09:04 | Operative Note ---
Operative Note - Date of Operation Date of Operation: 04/18/18 - General : 2 Para: 1 Expected Date of Delivery: 04/25/18 - Preoperative Diagnosis Previous Section - Postoperative Diagnosis previous section - Procedure Repeat - Surgeon Surgeon: Castro Oneill DO - Assistant Real Estate Manager OB Assistant Real Estate Manager: Willis Guillermo SurgMakenzie Assist - Anesthesia Anesthesia Provider: Ortega Dailey CRNA Anesthesia Type: Spinal - Estimated Blood Loss Estimated Blood Loss:: 700 - Findings Findings: viable female - APGARS : 8/9/9 - [place] Weight Weight (grams): 2982 - [place] Name Name: Serenity
[2018-04-18] MEDS: D5LR 1,000 ML IV SCH ×2 (09:10→19:47)
[2018-04-18] MEDS ORDERED: NALOXONE 2 MG/2 ML INJECTION PFS IVP PRN (09:11)
[2018-04-18] MEDS ORDERED: NALBUPHINE 10 MG/ML INJECTION IVP PRN (09:11)
--- NOTE | 2018-04-18 09:11 | Anesthesia Preoperative Report ---
Anesthesia Epidural/Spinal Rec - Date and Time Date: 04/18/18 Procedure: (repeat scheduled) Plan: Spinal - Vital Signs Vital Signs: Temperature 98.2 F 04/18/18 06:39 Pulse Rate 87 04/18/18 06:39 Respiratory Rate 18 04/18/18 06:39 Blood Pressure 131/73 04/18/18 06:39 Pulse Oximetry 98 04/18/18 06:39 NPO since: 00 /Para: P:1 Heart Rate: 133 - Medictaions & Allergies Inpatient Medications: Current Medications Acetaminophen (Tylenol) 500 - 1,000 mg PO Q4H PRN PRN Reason: Pain Calcium Carbonate (Tums) 500 mg PO O PRN Diphenhydramine HCl (Benadryl) 25 - 50 mg PO Q6H PRN PRN Reason: Itching Docusate Calcium (Surfak) 240 mg PO DAILY NESHA Hydrocortisone (Anusol-Hc 2.5% Cream) 1 applic RECTALLY PRN PRN PRN Reason: Hemorrhoids Lactated Ringer's (Lactated Ringers) 1,000 mls @ 999 mls/hr IV .Q1H1M [facility] Last Admin: 04/18/18 08:36 Dose: 999 mls/hr Clindamycin Phosphate (Cleocin 900 Mg Premix) 900 mg in 50 mls @ 50 mls/hr IV O [facility] Last Infusion: 04/18/18 08:46 Dose: Infused Dextrose/Lactated Ringer's (Dextrose 5%-Lactated Ringers) 1,000 mls @ 100 mls/ hr IV .Q10H [facility] Oxytocin (Pitocin Drip) 30 unit in 500 mls @ 50 mls/hr IV .Q10H [facility] Stop: 04/18/18 19:14 Ibuprofen (Motrin) 800 mg PO Q8H PRN PRN Reason: Pain Magnesium Hydroxide (Mom) 30 ml PO HS PRN PRN Reason: Constipation Oxycodone/Acetaminophen (Percocet 5/325) 1 - 2 tab PO Q4H PRN PRN Reason: Pain Simethicone (Mylicon) 80 mg PO P[facility]S PRN PRN Reason: Gas Simethicone (Mylicon) 80 mg PO [facility] Allergies/Adverse Reactions: Allergies Allergy/AdvReac Type Severity Reaction Status Date / Time amoxicillin Allergy Intermediate Rash Verified 04/11/18 12:09 cefaclor [From Ceclor] Allergy Intermediate rash Verified 04/11/18 12:09 Penicillins Allergy Intermediate Rash Verified 04/11/18 12:09 cephalososporins Allergy Intermediate Vomiting Uncoded 04/11/18 12:09 clindamycin Allergy Intermediate vomiting Uncoded 11/30/17 13:29 - Home Medications Home Medications: Home Medications Medication Instructions Recorded Confirmed Type Vits #93/Iron Fum/FA 1 each PO DAILY 09/13/17 11/12/17 History [ Formula Tablet] - Medical History Gastrointestional: Reports: Gastroesophageal Reflux Disease, Morbid Obesity - Surgical History Reproductive Surgery/Treatment: Reports: Section Anesthesia Reactions: None Hx Family Anesthesia Reaction: No History of Motion Sickness: No - Social History Smoking Status: Current every day smoker Second Hand Exposure: No Substance Use Type: does not use, methamphetamine Alcohol Intake Frequency: does not drink Hx Chewing Tobacco Use: No - Pertinent Findings Lab Data: CBC and BMP 04/18/18 06:26 - Physical Exam Respiratory Exam: lungs clear, bilateral breath sounds equal Cardiovascular Exam: regular rate and rhythm - Airway Assessment Mallampati Score: II TMD: 3 Fingerbreadths Neck Extension: good Overall Assessment: no airway concerns - ASA ASA Score: 2 - Discussion Discussion: Discussed risks/options/alternatives of anesthesia and questions answered. Patient consents. Nursing pain assessment noted. Anesthesia Discussion: family member Attestation Statement: Prior to the delivery of any anesthetic medication, I examined the patient, developed the plan, obtained the patient's consent and discussed the risk and benefits of the procedure with the patient/guardian.
[2018-04-18] MEDS ORDERED: OXYTOCIN DRIP 30 UNIT/500 ML ML IV SCH (09:15)
[2018-04-18] MEDS: ONDANSETRON 4 MG/2 ML INJECTION IVP PRN ×2 (09:49→14:43)
--- NOTE | 2018-04-18 10:30 | Operative Note ---
DATE OF PROCEDURE 04/18/2018 PREOPERATIVE DIAGNOSIS 1. Single live intrauterine at term. 2. Prior low transverse section. POSTOPERATIVE DIAGNOSIS 1. Single live intrauterine at term. 2. Repeat low transverse section. 3. Delivered. PROCEDURE Repeat low transverse section. SURGEON Castro Oneill, BLOCK HACKER Gilmar Guillermo, Office Mover ANESTHESIA PROVIDER Ortega Dailey CRNA ANESTHESIA TYPE Spinal epidural ESTIMATED BLOOD LOSS 700 mL FINDINGS Viable female in cephalic presentation with Apgars of 8/9/9 and a weight of 2982 grams and the name of Radha Ivy. COMPLICATIONS None. IV FLUIDS 1500 mL URINE OUTPUT 150 mL clear urine at the end of procedure. INDICATIONS FOR PROCEDURE This is a G2, P1 with one prior low transverse section who presented to Maternal/Child at term for repeat low transverse section. Risks, benefits and alternatives to the procedure were discussed with the patient and she elected to proceed. DESCRIPTION OF PROCEDURE The patient was taken to the operating theatre where spinal anesthesia was obtained without difficulty. She was then prepped and draped in the dorsal supine position with a leftward tilt. Pfannenstiel skin incision was made with a scalpel and carried through the underlying layers to the fascia. The fascia was then incised in the midline and the fascial incision was then extended laterally with the Orantes scissors. Superior aspect of the fascial incision was grasped with Tate clamps, elevated and the rectus muscle dissected off with the knife and the Orantes scissors. Attention was then turned to the inferior aspect of the fascial incision where the fascia was dissected off with the Orantes scissors. The rectus muscles were in the midline and the peritoneum was entered bluntly. At this time, there were a couple of small omental adhesions to the peritoneum which were taken down with cautery. The peritoneal incision was extended superiorly and inferiorly with good visualization of the bladder. The bladder blade was then inserted and the uterine incision was made in a transverse fashion. The uterine incision was then extended laterally with cephalad/caudad motion and amniotomy was performed , noting clear fluid. The 's head was delivered, then followed by the body atraumatically. Cord was clamped and cut and the was handed off to the nurse who was waiting. The placenta was expressed. The uterus was exteriorized and cleared of all clot and debris. The uterine incision was then repaired with 0 Monocryl in a running locked fashion. A second layer of same suture used in an imbricating fashion was used and two sutures of 3-0 chromic and xcffrj-en-vohya suture was used to obtain excellent hemostasis. At this time the posterior cul-de-sac was cleared of all clot and debris. The uterus was returned to the abdomen. The paracolic gutters were noted be free of all clot. Excellent hemostasis was noted and the peritoneal incision was repaired with 3-0 Monocryl in a running fashion. The fascia was then repaired with 0 Vicryl in a running fashion. Subcutaneous layer was closed with 2-0 plain gut and the skin was closed with 4-0 Monocryl and Prineo Dermabond. The patient tolerated the procedure well. Sponge, lap and needle counts were correct x2 and patient was taken to the recovery room in stable condition. LAISHA
[2018-04-18] MEDS: SIMETHICONE 80 MG CHEWABLE TABLET PO SCH ×4 (12:21→21:20)
[2018-04-18] MEDS: IBUPROFEN 800 MG TABLET PO PRN ×2 (13:01→21:19)
[2018-04-18] MEDS ORDERED: SCOPOLAMINE 1mg/3 days PATCH (Eq. 1.5 Patch) TD ONE (14:52)
[2018-04-18] MEDS: Oxycodone/Acetaminophen 5/325 1 TAB PO PRN (19:05)
[2018-04-19] MEDS: Oxycodone/Acetaminophen 5/325 1 TAB PO PRN ×5 (00:58→21:13)
[2018-04-19 01:09] VITALS: RESP 16
[2018-04-19] MEDS: IBUPROFEN 800 MG TABLET PO PRN ×3 (05:32→23:36)
[2018-04-19] MEDS: D5LR 1,000 ML IV SCH (07:30)
[2018-04-19] MEDS: DOCUSATE CALCIUM 240 MG CAPSULE PO SCH (09:10)
[2018-04-19] MEDS: SIMETHICONE 80 MG CHEWABLE TABLET PO SCH ×3 (09:10→21:13)
--- NOTE | 2018-04-19 13:26 | OB/GYN Progress Note ---
OB-PP Progress Note - General PPD1 POD:: POD1 Maternal Group B Strep: Negative Maternal Rh: positive Maternal Rubella Status: Immune - Subjective Date: 04/19/18 Lochia: Minimal Pain: controlled Voiding: voiding Nausea or Vomiting Present: No - Objective Vital Signs: Last Vital Signs Temp 98.1 F 04/19/18 04:53 Pulse 60 04/19/18 04:53 Resp 16 04/19/18 04:53 BP 98/58 04/19/18 04:53 Pulse Ox 100 04/19/18 04:53 Urine Output: good General: alert and oriented Cardiovascular: regular rate,rhythm Respiratory: non-labored Abdomen: fundus firm, non-tender Incision: normal Edema: none Laboratory: Laboratory Results - last 24 hr 04/18/18 16:27 WBC 12.1 H RBC 3.42 L Hgb 10.2 L Hct 31.4 L MCV 91.8 MCH 29.8 MCHC 32.5 RDW Std Deviation 43.5 Plt Count 281 MPV 8.7 L - Assessment Assessment: SP, Repeat C/S - Plan Plan: routine care
[2018-04-19 23:45] VITALS: TEMP 98.2
[2018-04-20] MEDS: Oxycodone/Acetaminophen 5/325 1 TAB PO PRN ×2 (03:44→09:08)
[2018-04-20 04:00] VITALS: BP 132/66; PULSE 70; O2SAT 99
[2018-04-20] MEDS: SIMETHICONE 80 MG CHEWABLE TABLET PO SCH (09:08)
[2018-04-20] MEDS: IBUPROFEN 800 MG TABLET PO PRN (09:08)
[2018-04-20] MEDS: DOCUSATE CALCIUM 240 MG CAPSULE PO SCH (09:09)
[2018-04-21] MEDS ORDERED: SCOPOLAMINE PATCH REMOVAL TD SCH (15:00)
== END 2018-04-20 12:00 | disposition home or self-care (01) | DRG 766 ==
LOC: MC 05:48
PROVIDERS: ADMIT Obstetrics & Gynecology; ATTEND Obstetrics & Gynecology